=== PATIENT | female | born 1995 | race Caucasian/White ===

== ENCOUNTER 2017-10-29 15:59 | Inpatient (IN) | payer OTHER ==
[~2017-10-29] VITALS: Ht 160 cm; Wt 86.2 kg
[2017-10-29 17:20] LABS: ABSOLUTE BASOPHIL COUNT 0 /CUMM (0.0-0.2); ABSOLUTE EOSINOPHIL COUNT 0.1 /CUMM (0.0-0.7); ABSOLUTE GRANULOCYTE CT 3.7 /CUMM (1.4-6.5); ABSOLUTE LYMPH COUNT 0.7 /CUMM (1.2-3.4); ABSOLUTE MONOCYTE COUNT 0.5 /CUMM (0.10-0.60); BASOPHIL % 0.2 % (0.0-2.0); EOSINOPHIL % 2.5 % (0-5); GRANULOCYTE % 74.3 % (42.2-75.2); MEAN CORPUSCULAR HGB 29.5 PG (27.0-31.0); MEAN CORPUSCULAR HGB CONC 33.8 G/DL (33.0-37.0); MEAN CORPUSCULAR VOLUME 87.3 FL (81.0-99.0); MEAN PLATELET VOLUME 7.9 FL (7.4-10.4); PLATELET COUNT 263 /CUMM (130-400); RBC DISTRIBUTION WIDTH 12.6 % (11.5-14.5); RED BLOOD CELL CT 4.69 /CUMM (4.20-5.40)
--- NOTE | 2017-10-29 18:07 | ED GENERAL ADULT ---
History of Present Illness General Chief Complaint: General Adult Stated Complaint: CHEST AND BACK TIGHTNESS AND PAIN,SOB,HEART RACING Source: patient Exam Limitations: no limitations Vital Signs & Intake/Output Vital Signs & Intake/Output Vital Signs Date Time Temp Pulse Resp B/P B/P Pulse O2 O2 Flow FiO2 Mean Ox Delivery Rate 10/29 2210 98.6 86 16 121/69 98 Room Air 10/29 2012 Room Air 10/29 1611 97.1 120 18 117/81 97 Room Air ED Intake and Output 10/30 0000 10/29 1200 Intake Total Output Total Balance Patient 190 lb Weight Allergies Coded Allergies: NO KNOWN ALLERGIES (NKDA) (12/05/10) Triage Note: PT STATES THAT SINCE YESTERDAY AFTER SHE EATS SHE HAS BEEN GETTING SHARP PAIN THAT GOES FROM HER UPPER ABD AND RADIATES INTO HER FLANK UPPER BACK, DENIES V/D BUT COMPLAINS OF NAUSEA. Triage Nurses Notes Reviewed? yes Onset: Gradual Duration: day(s): (2) Timing: no prior history Injury Environment: home Severity: moderate Severity Numbers: 6 Modifying Factors: Worsens With: eating. : No Patient currently breastfeeds: No HPI: Patient is a 22-year-old female presenting to the emergency Department chief complaint of bilateral back pain that is burning in nature and worse with palpation and laying on her back. Patient also reporting that she has upper abdominal pain. Symptoms worse after she eats. Positive nausea but no vomiting. Denies fevers or chills. Denies taking anything for symptoms over- the-counter to help. denies Similar symptoms in the past. Denies any trauma. Patient does report that she has had palpitations and feeling her heart is racing. Denies any chest pain. He also reports that she's been ongoing over the past 2 days, atypical for her as she has the Mirena. Denies any urinary frequency or urgency or dysuria. No hematuria. (Purvi Church) Past History Travel History Traveled to [place] past 21 day No Medical History Any Pertinent Medical History? see below for history Neurological: NONE EENT: NONE Cardiovascular: NONE Respiratory: NONE Gastrointestinal: NONE Hepatic: NONE Renal: NONE Musculoskeletal: NONE Psychiatric: NONE Endocrine: NONE Blood Disorders: NONE Cancer(s): NONE MANAGER SERVICES/Reproductive: NONE Surgical History Surgical History: non-contributory Psychosocial History What is your primary language Vietnamese Tobacco Use: Never used ETOH Use: denies use Illicit Drug Use: denies illicit drug use Family History Hx Contributory? No (Purvi Church) Review of Systems Review of Systems Constitutional: Reports: no symptoms. Comments Review of systems: See HPI, All other systems negative. Constitutional, no chills fever or weight loss HEENT: No visual changes no sore throat no congestion Cardiovascular: No chest pain ,orthopnea or ankle swelling Skin, no jaundice no rashes Respiratory: No dyspnea cough sputum or hemoptysis GI: No nausea no vomiting : No dysuria No hematuria Muscle skeletal: no neck pain, Neurologic: No numbness no confusion Psych: No stress anxiety or depression,. Heme/endocrine: No bruising no bleeding no polyuria or polydipsia Immunology: No splenectomy or history of AIDS (Purvi Church) Physical Exam Physical Exam General Appearance: well developed/nourished, no apparent distress, alert, awake , comfortable Comments: Well-developed well-nourished person in no acute distress HEENT:. Pupils equally round and reactive to light and accommodation. Nose is atraumatic. Neck: Normal inspection, full range of motion. Back: tender Palpation along the lumbar paraspinal muscles bilaterally. Full range of motion without difficulty or pain. Negative straight leg raise bilaterally. Cardiovascular: Regular rate and rhythms no murmurs rubs or gallops, normal JVP Respiratory: Chest nontender. No respiratory distress.breath sounds clear to auscultation bilaterally Abdomen: Soft, tenderness to palpation in epigastric region without rebound or guarding, nondistended, no appreciable organomegaly. Normal bowel sounds. No ascites Extremity: No edema, no calf tenderness to palpation, normal and equal pulses. Patellar reflexes are 1+ bilaterally. Neuro: Alert oriented x3, motor sensory normal Skin: No appreciable rash on exposed skin, skin is warm and dry. Psych: Mood and affect is normal, memory and judgment is normal. Core Measures ACS in differential dx? Yes CVA/TIA Diagnosis: No (Purvi Church) Core Measures Sepsis Present: No Sepsis Focused Exam Completed? No (Nicholas Cook) Progress Differential Diagnoses I considered the following diagnoses in my evaluation of the patient: Cholecystitis, biliary colic, gallstones, dehydration, electrolyte ML a UTI, pyelonephritis and hydronephrosis, PE, ACS Plan of Care: Orders Procedure Date/time Status Regular Diet 10/30 B Active Misc Message 10/29 2357 Active ED Holding Orders 10/29 2358 Active Vital Signs 10/29 235 Active Code Status 10/29 235 Active Patient Data 10/29 235 Active Admit to inpatient 10/29 235 Active Add-on Test (ER Only) 10/29 2109 Active Add-on Test (ER Only) 10/29 1840 Active Add-on Test (ER Only) 10/29 180 Active Add-on Test (ER Only) 10/29 180 Active CULTURE,URINE 10/29 170 Active TSH REFLEX 10/29 1701 Complete TROPONIN LEVEL 10/29 1701 Complete PARTIAL THROMBOPLASTIN TIME 10/29 1701 Complete PROTHROMBIN TIME 10/29 1701 Complete LIPASE 10/29 1701 Complete D-DIMER 10/29 1701 Complete AMYLASE 10/29 1701 Complete URINE 10/29 1614 Complete URINALYSIS 10/29 1614 Complete LACTIC ACID 10/29 1614 Complete COMPREHENSIVE METABOLIC PANEL 10/29 1614 Complete CBC WITHOUT DIFFERENTIAL 10/29 1614 Complete EKG 10/29 1600 Active Current Medications Sig/Kriss Start time Last Medication Dose Stop Time Status Admin Pantoprazole Sodium 40 MG ONCE ONE 10/29 2230 AC 10/29 (Protonix) 10/30 0329 2302 Sodium Chloride 100 ML (Normal Saline 0.9%) Laboratory Tests 10/29/17 1914: Lactic Acid Cancelled 10/29/17 170: Urinalysis LIGHT H, Urine Color YEL, Urine Clarity CLDY H, Urine pH 6.5, Ur Specific [place] 1.020, Urine Protein TRACE H, Urine Ketones TRACE H, Urine Nitrite NEG, Urine Bilirubin NEG, Urine Urobilinogen 4.0 H, Ur Leukocyte Esterase SMALL H, Ur Microscopic SEDIMENT EXAMINED, Urine RBC RARE, Urine WBC 5 -10 H, Ur Epithelial Cells PACKD H, Urine Bacteria MANY H, Urine Mucus MANY H, Urine Hemoglobin NEG, Urine Glucose NEG, Urine Test NEGATIVE 10/29/17 170: Anion Gap 12, Estimated GFR > 60, BUN/Creatinine Ratio 20.0, Glucose 100 H, Lactic Acid 0.7, Calcium 9.5, Total Bilirubin 0.9, AST 18, ALT 25, Alkaline Phosphatase 76, Troponin I < 0.01, Total Protein 7.7, Albumin 4.5, Globulin 3.2, Albumin/Globulin Ratio 1.4, Amylase 32, Lipase 65, TSH &T3 &Free T4 Intrp 1.790, PT 12.3, INR 1.13, APTT 33, D-Dimer High Sensitivty < 200, CBC w Diff NO MAN DIFF REQ, RBC 4.69, MCV 87.3, MCH 29.5, MCHC 33.8, RDW 12.6, MPV 7.9, Gran % 74.3, Lymphocytes % 13.8 L, Monocytes % 9.2, Eosinophils % 2.5, Basophils % 0.2 , Absolute Granulocytes 3.7, Absolute Lymphocytes 0.7 L, Absolute Monocytes 0.5 , Absolute Eosinophils 0.1, Absolute Basophils 0 Microbiology 10/29 170 URINE ROUT: Urine Culture - RECD Diagnostic Imaging: Viewed by Me: CT Scan. Discussed w/RAD: CT Scan. Initial ED EKG: sinus tachy 109 bpm (Lisseth MURRAY,Purvi) Radiology Impression: PATIENT: ANNAMARIE TELLES PRESENT AGE: 22 PATIENT ACCOUNT NO: [id number] : 96 LOCATION: [facility] ORDERING PHYSICIAN: Purvi MURRAY SERVICE DATE: 10/29/17 EXAM TYPE: CAT - CT ABD & PELVIS W IV CONTRAST EXAMINATION: CT ABDOMEN AND PELVIS WITH CONTRAST CLINICAL INFORMATION: Epigastric pain COMPARISON: None TECHNIQUE: Multidetector volumetric imaging was performed of the abdomen and pelvis following IV administration of 94 mL of Optiray 320 intravenous contrast. Sagittal and coronal reformatted images were obtained on the technologist's workstation. DLP: 729 mGy-cm FINDINGS: Lung bases demonstrate a small pleural nodule on the left. 4 mm. Otherwise grossly clear. Upper abdomen There is a fluid density collection associated stranding at the level of the GE junction and extending along the gastric border medially the level of the distal body of the pancreas. This structure measures 4.9 x 2.8 x 5.4 cm. This may be having some mass effect on the lesser curvature of the stomach. No bulky adenopathy is seen in the region. As stated this is fluid density. The liver and spleen are within normal limits. Although this structure abuts the pancreas if feel it is separate from the pancreas. Adrenal glands within normal limits. The kidneys in the nephrographic phase within normal limits. Aorta is normal in caliber. There is no bulky adenopathy. No free fluid here. In the pelvis IUD within uterine canal. Small amount of free fluid in the pelvis on the left. The bowel pattern in the deep pelvis is felt to be within normal limits. Mildly prominent mesenteric nodes. The appendix is felt to be within normal limits. IMPRESSION: This exam is abnormal. There is a circumscribed fluid collection associated with the medial aspect of the stomach in the epigastrium as described. Findings may be the sequela of ulceration versus a duplication cyst or possibly pancreatic pseudocyst or cystic lesion of other etiology. Recommendation is pre and postcontrast MRI to better characterize. GI consultation and upper GI may also be helpful DICTATED BY: Pj Adam MD DATE/TIME DICTATED:10/29/172027 MAILING MACHINE OPERATOR:STEVIE DATE/TIME TRANSCRIBED:10/29/172027 CONFIDENTIAL, DO NOT COPY WITHOUT APPROPRIATE AUTHORIZATION. <Electronically signed in Other Vendor System> SIGNED BY: Pj Adam MD 10/29/172039 (Nicholas Cook) Departure Departure Condition: Stable Referrals: Moises HURLEY,Taiwo Acharya (PCP/Family) Departure Forms: Customer Survey General Discharge Information (Purvi Church) Departure Disposition: STILL A PATIENT Clinical Impression Primary Impression: Intra-abdominal fluid collection Secondary Impressions: Abdominal pain Admission Note Spoke With: Ashley Zelaya MD Documentation of Exam: Documentation of any treatments & extenuating circumstances including Concerns Regarding Discharge (functional status, medication knowledge or non-compliance, living conditions, etc.) that warrant an admission rather than observation: Patient will require surgical consultation. GI consultation. Upper endoscopy. MRI of the upper abdomen. Ultrasound. Potential needle aspiration. Medical not safe for discharge. Surgical PA came and saw the patient. Spoke with Dr. ty from GI who thinks the patient needs to be admitted. Spoke with Dr. Mcgraw. (Nicholas Cook) Critical Care Note Critical Care Note Critical Care Time: non-applicable (Nicholas Cook)
[2017-10-29 18:37] LABS: PT 12.3 SEC (9.4-12.5); PTT 33 SEC (25-37)
--- NOTE | 2017-10-29 20:40 | CT SCAN REPORT ---
EXAMINATION: CT ABDOMEN AND PELVIS WITH CONTRAST CLINICAL INFORMATION: Epigastric pain COMPARISON: None TECHNIQUE: Multidetector volumetric imaging was performed of the abdomen and pelvis following IV administration of 94 mL of Optiray 320 intravenous contrast. Sagittal and coronal reformatted images were obtained on the technologist's workstation. DLP: 729 mGy-cm FINDINGS: Lung bases demonstrate a small pleural nodule on the left. 4 mm. Otherwise grossly clear. Upper abdomen There is a fluid density collection associated stranding at the level of the GE junction and extending along the gastric border medially the level of the distal body of the pancreas. This structure measures 4.9 x 2.8 x 5.4 cm. This may be having some mass effect on the lesser curvature of the stomach. No bulky adenopathy is seen in the region. As stated this is fluid density. The liver and spleen are within normal limits. Although this structure abuts the pancreas if feel it is separate from the pancreas. Adrenal glands within normal limits. The kidneys in the nephrographic phase within normal limits. Aorta is normal in caliber. There is no bulky adenopathy. No free fluid here. In the pelvis IUD within uterine canal. Small amount of free fluid in the pelvis on the left. The bowel pattern in the deep pelvis is felt to be within normal limits. Mildly prominent mesenteric nodes. The appendix is felt to be within normal limits. IMPRESSION: This exam is abnormal. There is a circumscribed fluid collection associated with the medial aspect of the stomach in the epigastrium as described. Findings may be the sequela of ulceration versus a duplication cyst or possibly pancreatic pseudocyst or cystic lesion of other etiology. Recommendation is pre and postcontrast MRI to better characterize. GI consultation and upper GI may also be helpful
--- NOTE | 2017-10-29 23:04 | PN- General Surgery ---
Subjective Subjective: 22-year-old female presents to the emergency department with complaints 2 days of intermittent epigastric abdominal pain that radiates to the mid back, escalating in severity, postprandial after an egg and cheese sandwich as well as a cheese quesadilla, aproximately a half hour after eating, associated with mild to moderate nausea. She presented to the ER this evening due to the severe pain. She denies any fever or flulike illness or lower back pain flank pain or lower abdominal pain. She has no gallbladder pain history or history of GERD/ reflux disease. No NSAID use. No family history of same. The pain is better now after receiving pain medication. She denies vomiting or diarrhea. CT showed an abnormal fluid collection protocol to the stomach and surgery was consulted. She also complains of mild superior mid sternal burning sensation after eating as well that resolves quickly. No history of same. Review of Systems: Review of systems: See HPI, all other systems negative. Constitutional: No chills fever or weight loss HEENT: No visual changes no sore throat no congestion Cardiovascular: No chest pain ,palpitation , orthopnea or ankle swelling Skin: No jaundice no rashes Respiratory: No dyspnea cough sputum or hemoptysis GI: See HPI : No dysuria no hematuria Musclulo skeletal: No back pain no neck pain, Neurologic: No numbness no confusion Psych: No stress anxiety or depression,. Heme/endocrine: No bruising no bleeding no polyuria or polydipsia Immunology: No splenectomy or history of AIDS Objective Vital Signs and I&Os Vital Signs Date Time Temp Pulse Resp B/P B/P Pulse O2 O2 Flow FiO2 Mean Ox Delivery Rate 10/29 2210 98.6 86 16 121/69 98 Room Air 10/29 2012 Room Air 10/29 1611 97.1 120 18 117/81 97 Room Air Physical Exam: Well-developed well-nourished no apparent distress. HEENT: Atraumatic, extraocular motion intact Neck: Supple, no lymphadenopathy Heart: Regular rate and rhythm no murmur Respiratory: No respiratory distress clear to auscultation bilateral Abdomen: Obese, tenderness in the epigastrium, negative Putnam sign, no lower abdominal tenderness. Back: Nontender, no rashes present Extremities: No edema, no calf pain Neuro: Alert and oriented x3 Psych: Mood affect normal, normal memory normal judgment. Skin: Warm and dry, no rash on exposed skin Current Medications: Current Medications Sig/Kriss Start time Last Medication Dose Route Stop Time Status Admin Ketorolac 0 .STK-MED ONE 10/30 2007 DC Tromethamine .ROUTE Ketorolac 30 MG ONCE ONE 10/29 1899 DC 10/29 Tromethamine IV 10/29 Pantoprazole Sodium 0 .STK-MED ONE 10/29 2252 DC IV Pantoprazole Sodium 40 MG ONCE ONE 10/29 2229 UNVr Sodium Chloride 100 ML IV 10/30 0329 Results Last 48 Hours of Labs: Laboratory Tests 10/29 10/29 191 1704 Chemistry Lactic Acid Cancelled Urines Urinalysis LIGHT H Urine Color (YEL,AMB,STR) YEL Urine Clarity (CLEAR) CLDY H Urine pH (5.0 - 8.0) 6.5 Ur Specific [place] (1.001 - 1.035) 1.020 Urine Protein (NEG,<30 MG/DL) TRACE H Urine Ketones (NEG) TRACE H Urine Nitrite (NEG) NEG Urine Bilirubin (NEG) NEG Urine Urobilinogen (0.1 - 1.0 EU/dl) 4.0 H Ur Leukocyte Esterase (NEG) SMALL H Ur Microscopic SEDIMENT EXAMINED Urine RBC (0 - 5 /HPF) RARE Urine WBC (0 - 2 /HPF) 5-10 H Ur Epithelial Cells (NONE,FEW) PACKD H Urine Bacteria (NEG/NONE) MANY H Urine Mucus (FEW,NONE) MANY H Urine Hemoglobin (NEG) NEG Urine Glucose (N MG/DL) NEG Urine Test NEGATIVE 10/29 1700 Chemistry Sodium (137 - 145 mmol/L) 141 Potassium (3.5 - 5.1 mmol/L) 3.7 Chloride (98 - 107 mmol/L) 100 Carbon Dioxide (22 - 30 mmol/L) 29 Anion Gap (5 - 16) 12 BUN (7 - 17 mg/dL) 14 Creatinine (0.5 - 1.0 mg/dL) 0.7 Estimated GFR (>60 ml/min) > 60 BUN/Creatinine Ratio (7 - 25 %) 20.0 Glucose (65 - 99 mg/dL) 100 H Lactic Acid (0.7 - 2.1 mmol/L) 0.7 Calcium (8.4 - 10.2 mg/dL) 9.5 Total Bilirubin (0.2 - 1.3 mg/dL) 0.9 AST (14 - 36 U/L) 18 ALT (9 - 52 U/L) 25 Alkaline Phosphatase (<127 U/L) 76 Troponin I (< 0.11 ng/ml) < 0.01 Total Protein (6.3 - 8.2 g/dL) 7.7 Albumin (3.5 - 5.0 g/dL) 4.5 Globulin (1.9 - 4.2 gm/dL) 3.2 Albumin/Globulin Ratio (1.1 - 2.2 %) 1.4 Amylase (30 - 110 U/L) 32 Lipase (23 - 300 U/L) 65 TSH &T3 &Free T4 Intrp (0.270 - 4.20 uIU/mL) 1.790 Coagulation PT (9.4 - 12.5 SEC) 12.3 INR (0.90 - 1.19) 1.13 APTT (25 - 37 SEC) 33 D-Dimer High Sensitivty (0 - 243 ng/ml) < 200 Hematology CBC w Diff NO MAN DIFF REQ WBC (4.8 - 10.8 /CUMM) 5.0 RBC (4.20 - 5.40 /CUMM) 4.69 Hgb (12.0 - 16.0 G/DL) 13.9 Hct (37 - 47 %) 41.0 MCV (81.0 - 99.0 FL) 87.3 MCH (27.0 - 31.0 PG) 29.5 MCHC (33.0 - 37.0 G/DL) 33.8 RDW (11.5 - 14.5 %) 12.6 Plt Count (130 - 400 /CUMM) 263 MPV (7.4 - 10.4 FL) 7.9 Gran % (42.2 - 75.2 %) 74.3 Lymphocytes % (20.5 - 51.1 %) 13.8 L Monocytes % (1.7 - 9.3 %) 9.2 Eosinophils % (0 - 5 %) 2.5 Basophils % (0.0 - 2.0 %) 0.2 Absolute Granulocytes (1.4 - 6.5 /CUMM) 3.7 Absolute Lymphocytes (1.2 - 3.4 /CUMM) 0.7 L Absolute Monocytes (0.10 - 0.60 /CUMM) 0.5 Absolute Eosinophils (0.0 - 0.7 /CUMM) 0.1 Absolute Basophils (0.0 - 0.2 /CUMM) 0 Recent Imaging Studies: PATIENT: ANNAMARIE TELLES PRESENT AGE: 22 PATIENT ACCOUNT NO: [id number] : 96 LOCATION: [facility] ORDERING PHYSICIAN: Purvi MURRAY SERVICE DATE: 10/29/17 EXAM TYPE: CAT - CT ABD & PELVIS W IV CONTRAST EXAMINATION: CT ABDOMEN AND PELVIS WITH CONTRAST CLINICAL INFORMATION: Epigastric pain COMPARISON: None TECHNIQUE: Multidetector volumetric imaging was performed of the abdomen and pelvis following IV administration of 94 mL of Optiray 320 intravenous contrast. Sagittal and coronal reformatted images were obtained on the technologist's workstation. DLP: 729 mGy-cm FINDINGS: Lung bases demonstrate a small pleural nodule on the left. 4 mm. Otherwise grossly clear. Upper abdomen There is a fluid density collection associated stranding at the level of the GE junction and extending along the gastric border medially the level of the distal body of the pancreas. This structure measures 4.9 x 2.8 x 5.4 cm. This may be having some mass effect on the lesser curvature of the stomach. No bulky adenopathy is seen in the region. As stated this is fluid density. The liver and spleen are within normal limits. Although this structure abuts the pancreas if feel it is separate from the pancreas. Adrenal glands within normal limits. The kidneys in the nephrographic phase within normal limits. Aorta is normal in caliber. There is no bulky adenopathy. No free fluid here. In the pelvis IUD within uterine canal. Small amount of free fluid in the pelvis on the left. The bowel pattern in the deep pelvis is felt to be within normal limits. Mildly prominent mesenteric nodes. The appendix is felt to be within normal limits. IMPRESSION: This exam is abnormal. There is a circumscribed fluid collection associated with the medial aspect of the stomach in the epigastrium as described. Findings may be the sequela of ulceration versus a duplication cyst or possibly pancreatic pseudocyst or cystic lesion of other etiology. Recommendation is pre and postcontrast MRI to better characterize. GI consultation and upper GI may also be helpful DICTATED BY: Pj Adam MD DATE/TIME DICTATED:10/29/172027 COMPENSATION AND BENEFITS ADMINISTRATOR:STEVIE DATE/TIME TRANSCRIBED:10/29/172027 Assessment/Plan Assessment/Plan Intra-abdominal fluid collection to the medial aspect of the stomach. Patient is not ill, no signs of peritonitis. Possibilities include cyst/pseudocyst, pancreatic pseudocyst, abscess, contained ulcer perforation of the stomach, biliary colic with incidental finding. Recommend GI consult for further evaluation of this, possibly endoscopy with endoscopic ultrasound. No role for acute surgical intervention at this time as we will need to further characterize this prior to any surgical intervention. We will continue to follow along with you, full consult to be performed by John Mcgraw MD tomorrow. Discussed with patient and mother who understand and agree with plan Problem List: 1. Abdominal pain 2. Intra-abdominal fluid collection
--- NOTE | 2017-10-30 00:13 | History & Physical ---
DarciDiego 10/30/17 0012: General Information and HPI MD Statement: I have seen and personally examined ANNAMARIE TELLES and documented this H&P. The patient is a 22 year old F who presented with a patient stated chief complaint of back pain, burning sensation in the chest, nausea, dizziness and bloating sensation in the epigastrium for last 2 days []. Source of Information: patient, family Exam Limitations: no limitations History of Present Illness: 22 YO F non smoker with no significant PMH was brought to ED by her mother with chief complaint of back pain, nausea, epigastric bloating sensation, burning sensation in the chest and dizziness for last 2 days. Patient reported that she was in her usual state of health 2 days back when he suddenly started to have lower back pain especially on the right side. Patient reported that pain started suddenly after she woke up, sharp, 7/10, nonradiating, aggravated when she laid down on back and she didn't have any pain medication according to patient. Later on patient noticed that she had acid reflux and feeling nauseous. Patient also reported that she was having dizziness at that point and she was feeling fullness in the belly. She denied any central chest pain, shortness of breath, palpitation, trauma to chest, loss of consciousness, chills, fever, vomiting, hematemesis, diarrhea, constipation, abdominal pain and dysuria. Patient reported that she was diagnosed with ovarian cyst in the past and then her VACUUM FORMING MACHINE OPERATOR gave her oral contraceptive medication. She reported occasional use of alcohol. Patient also reported having bright red spotting that's unusual for. ED course: Vitals: Temperature 97.1, pulse 120, respiratory rate 18, blood pressure 117/81, oxygen saturation 97% on room air Labs: WBC count 5.0, hemoglobin 13.9, hematocrit 40.0, platelet count 263, sodium 141, potassium 3.7, BUN 14, creatinine 0.7, glucose 100, BUNs/creatinine ratio 20.0, anion gap 12, lactic acid 0.7, calcium 9.5, AST 18, ALT 25, alkaline phosphatase 76, troponin less than 0.01, protein 7.7, albumin 4.5, globulin 3.2, albumin/creatinine ratio 1.4, amylase 32, lipase 65 Allergies/Medications Allergies: Coded Allergies: NO KNOWN ALLERGIES (NKDA) (12/05/10) Past History Travel History Traveled to [place] past 21 day No Medical History Neurological: NONE EENT: NONE Cardiovascular: NONE Respiratory: NONE Gastrointestinal: NONE Hepatic: NONE Renal: NONE Musculoskeletal: NONE Psychiatric: NONE Endocrine: NONE Blood Disorders: NONE Cancer(s): NONE CABINET INSTALLER/Reproductive: NONE Surgical History Surgical History: non-contributory Past Family/Social History Psychosocial History ETOH Use: denies use Illicit Drug Use: denies illicit drug use Review of Systems Review of Systems Constitutional: Reports: weakness. EENTM: Reports: no symptoms. Cardiovascular: Reports: no symptoms. Respiratory: Reports: no symptoms. GI: Reports: abdominal pain, bloating, nausea. Genitourinary: Reports: no symptoms. Musculoskeletal: Reports: back pain. Skin: Reports: no symptoms. Neurological/Psychological: Reports: no symptoms. Hematologic/Endocrine: Reports: no symptoms. Exam & Diagnostic Data Last 24 Hrs of Vital Signs/I&O Vital Signs Date Time Temp Pulse Resp B/P B/P Pulse O2 O2 Flow FiO2 Mean Ox Delivery Rate 10/29 2210 98.6 86 16 121/69 98 Room Air 10/29 2012 Room Air 10/29 1611 97.1 120 18 117/81 97 Room Air Intake & Output 10/30 0800 10/30 0000 10/29 1600 Intake Total Output Total Balance Patient 190 lb Weight Physical Exam General Appearance Alert, Oriented X3, Cooperative, No Acute Distress Skin No Rashes Skin Temp/Moisture Exam: Warm/Dry Sepsis Skin Exam (color): Normal for Ethnicity HEENT Atraumatic, PERRLA, EOMI Neck Supple Cardiovascular Normal S1, Normal S2 Lungs Clear to Auscultation, Normal Air Movement Abdomen Normal Bowel Sounds, Mild tenderness in epigastrium Neurological Normal Speech, Strength at 5/5 X4 Ext, Normal Tone, Sensation Intact Extremities No Edema Assessment/Plan Assessment: 22 YO F non smoker with no significant PMH was brought to ED by her mother with chief complaint of back pain, nausea, epigastric bloating sensation, burning sensation in the chest and dizziness for last 2 days. We'll admit the patient on general medicine floors admit the patient on general medicine floor abdominal bloating and nausea with back pain. Abdominal bloating and nausea: -On CT scan, there is cystic swelling posterior to stomach starting from gastroesophageal junction to the lesser curvature and tail of pancreas that could be possible pseudocyst pancreas, abscess or collection of fluid due to perforation of duodenal ulcer. -MRI in a.m. to evaluate mass. -We'll follow up with general surgery -GI consult -IV Protonix -Gentle hydration -IV antiemetics (Zofran) -Nothing by mouth Back pain: -We will follow pain pathway -IV morphine when necessary DVT prophylaxis: Mechanical and subcutaneous Lovenox CODE STATUS: Full code As Ranked By This Provider Problem List: 1. Nausea 2. Abdominal bloating 3. Back pain Core Measures/Misc (04/28) Acute Coronary Syndrome ACS Diagnosis: No Congestive Heart Failure Congestive Heart Failure Diagnosis No Cerebrovascular Accident CVA/TIA Diagnosis: No VTE (View Protocol) VTE Risk Factors Obesity No Mechanical VTE Prophylaxis d/t N/A MechProphylax Ordered No VTE Pharm Prophylaxis d/t NA PharmProphylax ordered Sepsis (View protocol) Sepsis Present: No JayaMartha reyes 10/30/17 0133: Resident Review Statement Resident Statement: examined this patient, discussed with editing intern, agreed with editing intern Other Findings: Patient is 22-year-old occasion female with no significant past medical history came with chief complaint of mid back pain and epigastric pain for 2 days. Patient endorses that on Saturday afternoon she started experiencing mid back pain which was sharp, burning, continuous, non-positional and nonradiating 7-8 x 10 in intensity. She had that pain during the evening and go to sleep without taking any pain medications but woke up around 4 AM with severe epigastric pain associated with nausea. She denied any active vomiting but she was very dizzy, tired and fatigued on Saturday and decided to come to ER. Review of system was negative for any fever, chills, headache, vomiting, diarrhea, constipation, any urinary complaints, any focal neurological deficit, palpitations or shortness of breath. She denied any recent weight changes. She is nonsmoker and nonalcoholic. She was not hospitalized for any similar symptoms in the past. She denied any history of acid reflux in the past. She also had intermittent vaginal fresh bleeding which is unusual than her regular spoting due to Mirena. Her vital signs on admission were temperature 97.1, pulse 120, respiratory rate 18, blood pressure 117/81 and she was saturating 97% on room air. Labs are significant for WBC of 5.0, hemoglobin 13.9, hematocrit 41.0, rated count 263, sodium 141, potassium 3.7, BUN 14, creatinine 0.7, lactic acid 0.7, negative troponin, amylase 32, lipase 65, normal TSH. EKG showed normal sinus rhythm with no acute ST-T wave changes. CT abdomen and pelvis showed circumscribed fluid collection associated with the medial aspect of stomach in the epigastrium. Structure measures 4.9 into 2.18- 5.4 cm. patientwas evaluated by surgery but no urgent surgical intervention needed at this point. On examination Patient is alert and oriented 3 Head atraumatic Neck supple Chest clear to auscultate Back examination significant for slight tenderness on palpation over right lower back/costovertebral angle tenderness positive on right side, no rash or skin changes noted Abdomen soft, normal bowel sounds with slight tenderness in epigastric area, no rebound tenderness Extremities showed no edema cyanosis or clubbing No neurological deficit noted Assessment and plan 22-year-old nonsmoker, nonalcoholic female with no significant past medical history came in with chief complaint of epigastric pain, mid back pain and nausea with imaging incidental finding of cystic mass at GE junction concerning for questionable cyst for GI in origin. We will admit patient on general medical floor and we will address following problems Problem list 1. Mid back pain/epigastric pain could be due to GERD but other GI etiologies needs to be ruled out 2. cystic epigastric/abdominal mass needs further workup could be incidental finding Plan 1. We will keep patient on general medical floor 2. We will monitor her CBCs and electrolytes daily 3. We will keep her nothing by mouth and will start her on IV fluids 4. Adequate analgesia with Tylenol and morphine as needed 5. Antiemetics as needed for nausea/vomiting 6. We will order MRI of abdomen with and without gadolinium for further evaluation of mass 7. We will request GI evaluation in the morning as patient might need EGD 8. We'll keep her on proton pump inhibitor 9. Patient was already been evaluated by surgery in emergency room. Pharmacological DVT prophylaxis Patient is full code We will keep her nothing by mouth for now. Garcia HURLEY, [facility] 10/30/17 0552: Attending Review Statement Attending Statement Attending Statement: examined this patient, discuss w/resident/PA/BOTTOM TURNER, agreed w/resident/PA/BOTTOM TURNER, discussed with family, reviewed images, amended to note Attending Assessment/Plan: 22 yo healthy female is here for sudden onset epigastric abdominal and mid-back pain associated with nausea. She has had two episodes in the past 2 days, both precipitated after eating a fatty meal consisting of egg/chese sandwich and cheese quesadilla. She denies any such previous episodes, no h/o gallstones or pancreatitis. She did not vomit, denies fever/ chills or diarrhea. No weight loss or loss of appetite. No h/o GERD or peptic ulcer disease. No NSAID use. No urinary symptoms, no kidney stones. Today the pain was unrelenting so she came to the ER. Vitals stable. Abdomen tender in epigastric region. Negative ahumada's, no CVA tenderness. Labs are unremarkable. UA dirty, but not a good sample. Utox negative. CT abd/pelvis: fluid density collection associated stranding at level of GE junction, extending along gastric border measuring 4.9 by 2.8 by 5.4 cm with some mass effect on lesser curvature of stomach. ?pancreatic pseudocysts vs ulceration of stomach or gallbladder. EKG: sinus tachycardia. Assessment and plan: 1. Intractable epigastric abdominal pain 2. Intra-abdominal fluid collection at GE junction ?etiology - Admit to general medicine - Serial abdomen exams - NPO - IV fluids - IV pantoprazole and anti-emetics - Surgery consult no surgical intervention at this point - GI consult for possible EGD - MRI in AM - ?aspiration of the fluid collection - Pain management DVT ppx Lovenox. Full code.
--- NOTE | 2017-10-30 05:53 | Admission Certification ---
Admission Certification Certification Statement - As attending physician, I certify that at the time of - admission, based on clinical presentation, severity of - symptoms, need for further diagnostic testing and - therapeutic interventions, and risk of adverse outcomes - without in-hospital treatment, in my clinical assessment, - this patient requires an acute hospital stay for a minimum - of two nights or longer. I have also considered psychsocial - factors such as support system, advanced age, financial - issues, cognitive issues, and failed out-patient treatments, - past re-admission history, safety of patient, and lack of - compliance as applicable. Specific rationale supporting this admission is: Intractable abdominal pain, CT suggestive of abnormal fluid collection that needs further evaluation.
[2017-10-30 08:53] LABS: ABSOLUTE BASOPHIL COUNT 0 /CUMM (0.0-0.2); ABSOLUTE EOSINOPHIL COUNT 0.2 /CUMM (0.0-0.7); ABSOLUTE GRANULOCYTE CT 2.7 /CUMM (1.4-6.5); ABSOLUTE LYMPH COUNT 0.7 /CUMM (1.2-3.4); ABSOLUTE MONOCYTE COUNT 0.5 /CUMM (0.10-0.60); BASOPHIL % 0.2 % (0.0-2.0); EOSINOPHIL % 4.5 % (0-5); GRANULOCYTE % 66.3 % (42.2-75.2); HEMATOCRIT 37.4 % (37-47); MEAN CORPUSCULAR HGB 29.7 PG (27.0-31.0); MEAN CORPUSCULAR HGB CONC 34.3 G/DL (33.0-37.0); MEAN CORPUSCULAR VOLUME 86.4 FL (81.0-99.0); MEAN PLATELET VOLUME 8.3 FL (7.4-10.4); PLATELET COUNT 222 /CUMM (130-400); RBC DISTRIBUTION WIDTH 12.8 % (11.5-14.5); RED BLOOD CELL CT 4.33 /CUMM (4.20-5.40); WHITE BLOOD CELL COUNT 4.1 /CUMM (4.8-10.8)
--- NOTE | 2017-10-30 08:57 | Cons- Gastroenterology ---
See Addendum General Information and HPI Consulting Request Date of Consult: 10/30/17 Requested By: Mikki Preciado MD Reason for Consult: 1. Abdominal pain 2. Abnormal CT scan of the abdomen Source of Information: patient, Electronic medical record Exam Limitations: no limitations History of Present Illness: Patient is a 22-year-old female who presented to [facility] ED with acute onset of epigastric pain after eating dinner. MsChrista after she had this intense pain which she says was located in the back on Saturday evening. When she woke up on Saturday she had severe acid reflux all day which was not normal for her. She again ate a meal and again developed intense back pain as well as nausea and vomiting which she had never had before. She is moving her bowels normally. She had no hematemesis. She had no diarrhea and denies bright red blood per rectum. She had no fever or shaking chills. Patient had a CT scan of the abdomen in the ED which showed the following. Upper abdomen: There is a fluid density collection associated stranding at the level of the GE junction and extending along the gastric border medially the level of the distal body of the pancreas. This structure measures 4.9 x 2.8 x 5.4 cm. This may be having some mass effect on the lesser curvature of the stomach. No bulky adenopathy is seen in the region. As stated this is fluid density. The liver and spleen are within normal limits. Although this structure abuts the pancreas if feel it is separate from the pancreas. Adrenal glands within normal limits. The kidneys in the nephrographic phase within normal limits. Aorta is normal in caliber. There is no bulky adenopathy. No free fluid here. In the pelvis IUD within uterine canal. Small amount of free fluid in the pelvis on the left. The bowel pattern in the deep pelvis is felt to be within normal limits. Mildly prominent mesenteric nodes. The appendix is felt to be within normal limits. IMPRESSION: This exam is abnormal. There is a circumscribed fluid collection associated with the medial aspect of the stomach in the epigastrium as described. Findings may be the sequela of ulceration versus a duplication cyst or possibly pancreatic pseudocyst or cystic lesion of other etiology. Recommendation is pre and postcontrast MRI to better characterize. GI consultation and upper GI may also be helpful Labs on admission were unremarkable with a normal CMP, normal CBC, and coags. After CT which was inconclusive an MRI was ordered to help further define the etiology of the fluid collection noted on CT scan. The results are as follows. FINDINGS: Lung bases: Unremarkable. Liver: Normal size, contour and parenchymal signal intensity. Gallbladder and biliary tree: Gallbladder is physiologically distended and without cholelithiasis or wall edema. Common bile duct is normal and measures up to 3-4 mm diameter. No evidence of common duct stricture or choledocholithiasis. No intrahepatic bile duct dilatation. Pancreas: Normal. Spleen: Prominent spleen measures 14 cm craniocaudal dimension. No focal splenic lesion. Adrenal glands: Normal. Kidneys: Normal. No renal mass, hydronephrosis or perinephric edema. Lymphovascular structures: Abdominal aorta is normal in caliber and the celiac trunk, SMA and renal arteries are widely patent. Inferior vena cava and renal veins are normal. The splenic, mesenteric, portal and hepatic veins are patent. Within the upper abdomen interposed between the pancreatic body and stomach, there is a lobulated 5.6 x 4.3 x 3.1 cm cyst that contains several thin internal septations. There are no solid, contrast enhancing soft tissue elements within this lesion. No pathologic sized periportal, mesenteric or retroperitoneal lymph nodes. Gastrointestinal tract: Stomach is normal. The visualized loops of bowel are normal in caliber. No evidence of inflammation or obstruction along the gastrointestinal tract. No ascites. Bones: Unremarkable. IMPRESSION: 1. No evidence of cholelithiasis, cholecystitis or biliary tract obstruction. 2. There is a benign appearing, lobulated 5.6 x 4.3 x 3.1 cm cyst containing several thin internal septations within the upper abdomen interposed between the pancreatic body and stomach. 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 3. Splenomegaly. Allergies/Medications Allergies: Coded Allergies: NO KNOWN ALLERGIES (NKDA) (12/05/10) Current Medications: Current Medications Sig/Kriss Start time Last Medication Dose Route Stop Time Status Admin Acetaminophen 1,000 MG TID PRN 10/30 0130 AC IV Enoxaparin Sodium 0 .STK-MED ONE 10/30 1124 DC SC Enoxaparin Sodium 40 MG DAILY 10/30 0200 AC SC Enoxaparin Sodium 0 .STK-MED ONE 10/30 0156 DC SC Ketorolac 0 .STK-MED ONE 03/20 2008 DC Tromethamine .ROUTE Ketorolac 30 MG ONCE ONE 10/29 1900 DC 10/29 Tromethamine IV 10/29 1901 1945 Morphine Sulfate 0 .STK-MED ONE 10/30 1023 DC .ROUTE Morphine Sulfate 2 MG Q6P PRN 10/30 0130 AC 10/30 IV 1025 Ondansetron HCl 4 MG ONCE ONE 10/30 1030 DC 10/30 IV 10/30 1031 1030 Ondansetron HCl 0 .STK-MED ONE 10/30 1023 DC .ROUTE Pantoprazole Sodium 0 .STK-MED ONE 10/30 1124 DC IV Pantoprazole Sodium 40 MG DAILY 10/30 1000 AC 10/30 IV 1132 Pantoprazole Sodium 0 .STK-MED ONE 10/29 2253 DC IV Pantoprazole Sodium 40 MG ONCE ONE 10/29 2230 DC 10/29 Sodium Chloride 100 ML IV 10/30 0329 2302 Ramelteon 8 MG ONCE ONE 10/30 0130 DC 10/30 PO 10/30 0131 0209 Sodium Chloride 1,000 ML Q10H 10/30 0130 AC 10/30 IV 1403 Past History Travel History Traveled to [place] past 21 day No Medical History Neurological: NONE EENT: NONE Cardiovascular: NONE Respiratory: NONE Gastrointestinal: NONE Hepatic: NONE Renal: NONE Musculoskeletal: NONE Psychiatric: NONE Endocrine: NONE Blood Disorders: NONE Cancer(s): NONE NEUROCRITICAL CARE PHYSICIAN/Reproductive: NONE Surgical History Surgical History: non-contributory Psychosocial History ETOH Use: denies use Illicit Drug Use: denies illicit drug use Exam & Diagnostic Data Vital Signs and I&O Vital Signs Date Time Temp Pulse Resp B/P B/P Pulse O2 O2 Flow FiO2 Mean Ox Delivery Rate 10/30 0640 97.7 94 18 110/54 97 Room Air 10/30 0114 98.2 78 18 106/64 99 Room Air 10/29 221 98.6 86 16 121/69 98 Room Air 10/29 2012 Room Air 10/29 1611 97.1 120 18 117/81 97 Room Air Intake & Output 10/30 1600 10/30 0400 10/29 1600 10/29 0400 10/28 1600 10/28 0400 Intake Total Output Total Balance Patient 190 lb Weight Physical Exam General Appearance: awake, comfortable Head: atraumatic, normal appearance Eyes: Bilateral: normal appearance. Ears, Nose, Throat: hearing grossly normal Neck: supple, full range of motion Respiratory: normal breath sounds, lungs clear Cardiovascular: regular rate/rhythm, normal S1 and S2 without rub murmur or gallop Gastrointestinal: normal bowel sounds, soft, non-tender, no organomegaly Extremities: normal inspection, no edema Neurologic/Psych: oriented x 3, normal mood/affect Cranial Nerves: cranial nerves II through XII intact grossly Skin: intact, normal color, warm/dry Results Pertinent Lab Results: Laboratory Tests 10/30 10/29 0633 1914 Chemistry Sodium (137 - 145 mmol/L) 142 Potassium (3.5 - 5.1 mmol/L) 3.6 Chloride (98 - 107 mmol/L) 105 Carbon Dioxide (22 - 30 mmol/L) 23 Anion Gap (5 - 16) 13 BUN (7 - 17 mg/dL) 14 Creatinine (0.5 - 1.0 mg/dL) 0.6 Estimated GFR (>60 ml/min) > 60 BUN/Creatinine Ratio (7 - 25 %) 23.3 Lactic Acid Cancelled Hematology CBC w Diff NO MAN DIFF REQ WBC (4.8 - 10.8 /CUMM) 4.1 L RBC (4.20 - 5.40 /CUMM) 4.33 Hgb (12.0 - 16.0 G/DL) 12.8 Hct (37 - 47 %) 37.4 MCV (81.0 - 99.0 FL) 86.4 MCH (27.0 - 31.0 PG) 29.7 MCHC (33.0 - 37.0 G/DL) 34.3 RDW (11.5 - 14.5 %) 12.8 Plt Count (130 - 400 /CUMM) 222 MPV (7.4 - 10.4 FL) 8.3 Gran % (42.2 - 75.2 %) 66.3 Lymphocytes % (20.5 - 51.1 %) 17.9 L Monocytes % (1.7 - 9.3 %) 11.1 H Eosinophils % (0 - 5 %) 4.5 Basophils % (0.0 - 2.0 %) 0.2 Absolute Granulocytes (1.4 - 6.5 /CUMM) 2.7 Absolute Lymphocytes (1.2 - 3.4 /CUMM) 0.7 L Absolute Monocytes (0.10 - 0.60 /CUMM) 0.5 Absolute Eosinophils (0.0 - 0.7 /CUMM) 0.2 Absolute Basophils (0.0 - 0.2 /CUMM) 0 10/29 1704 Toxicology Urine Opiates Screen (>2000 NG/ML) < 100 Methadone Screen (>300 NG/ML) < 40 Barbiturate Screen (>200 NG/ML) < 60 Ur Phencyclidine Scrn (>25 NG/ML) < 6.00 Amphetamines Screen (>1000 NG/ML) < 100 U Benzodiazepines Scrn (>200 NG/ML) < 85 Urine Cocaine Screen (>300 NG/ML) < 50 Urine Cannabis Screen (>50 NG/ML) < 5.00 Urines Urinalysis LIGHT H Urine Color (YEL,AMB,STR) YEL Urine Clarity (CLEAR) CLDY H Urine pH (5.0 - 8.0) 6.5 Ur Specific [place] (1.001 - 1.035) 1.020 Urine Protein (NEG,<30 MG/DL) TRACE H Urine Ketones (NEG) TRACE H Urine Nitrite (NEG) NEG Urine Bilirubin (NEG) NEG Urine Urobilinogen (0.1 - 1.0 EU/dl) 4.0 H Ur Leukocyte Esterase (NEG) SMALL H Ur Microscopic SEDIMENT EXAMINED Urine RBC (0 - 5 /HPF) RARE Urine WBC (0 - 2 /HPF) 5-10 H Ur Epithelial Cells (NONE,FEW) PACKD H Urine Bacteria (NEG/NONE) MANY H Urine Mucus (FEW,NONE) MANY H Urine Hemoglobin (NEG) NEG Urine Glucose (N MG/DL) NEG Urine Test NEGATIVE 10/29 1700 Chemistry Sodium (137 - 145 mmol/L) 141 Potassium (3.5 - 5.1 mmol/L) 3.7 Chloride (98 - 107 mmol/L) 100 Carbon Dioxide (22 - 30 mmol/L) 29 Anion Gap (5 - 16) 12 BUN (7 - 17 mg/dL) 14 Creatinine (0.5 - 1.0 mg/dL) 0.7 Estimated GFR (>60 ml/min) > 60 BUN/Creatinine Ratio (7 - 25 %) 20.0 Glucose (65 - 99 mg/dL) 100 H Lactic Acid (0.7 - 2.1 mmol/L) 0.7 Calcium (8.4 - 10.2 mg/dL) 9.5 Total Bilirubin (0.2 - 1.3 mg/dL) 0.9 AST (14 - 36 U/L) 18 ALT (9 - 52 U/L) 25 Alkaline Phosphatase (<127 U/L) 76 Troponin I (< 0.11 ng/ml) < 0.01 Total Protein (6.3 - 8.2 g/dL) 7.7 Albumin (3.5 - 5.0 g/dL) 4.5 Globulin (1.9 - 4.2 gm/dL) 3.2 Albumin/Globulin Ratio (1.1 - 2.2 %) 1.4 Amylase (30 - 110 U/L) 32 Lipase (23 - 300 U/L) 65 TSH &T3 &Free T4 Intrp (0.270 - 4.20 uIU/mL) 1.790 Coagulation PT (9.4 - 12.5 SEC) 12.3 INR (0.90 - 1.19) 1.13 APTT (25 - 37 SEC) 33 D-Dimer High Sensitivty (0 - 243 ng/ml) < 200 Hematology CBC w Diff NO MAN DIFF REQ WBC (4.8 - 10.8 /CUMM) 5.0 RBC (4.20 - 5.40 /CUMM) 4.69 Hgb (12.0 - 16.0 G/DL) 13.9 Hct (37 - 47 %) 41.0 MCV (81.0 - 99.0 FL) 87.3 MCH (27.0 - 31.0 PG) 29.5 MCHC (33.0 - 37.0 G/DL) 33.8 RDW (11.5 - 14.5 %) 12.6 Plt Count (130 - 400 /CUMM) 263 MPV (7.4 - 10.4 FL) 7.9 Gran % (42.2 - 75.2 %) 74.3 Lymphocytes % (20.5 - 51.1 %) 13.8 L Monocytes % (1.7 - 9.3 %) 9.2 Eosinophils % (0 - 5 %) 2.5 Basophils % (0.0 - 2.0 %) 0.2 Absolute Granulocytes (1.4 - 6.5 /CUMM) 3.7 Absolute Lymphocytes (1.2 - 3.4 /CUMM) 0.7 L Absolute Monocytes (0.10 - 0.60 /CUMM) 0.5 Absolute Eosinophils (0.0 - 0.7 /CUMM) 0.1 Absolute Basophils (0.0 - 0.2 /CUMM) 0 Assessment/Plan Assessment/Recommendations: ASSESSMENT: 1. 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 It is a lobulated 5.6 x 4.3 x 3.1 cm cyst that contains several thin internal septations. located between the stomach and the pancreas. RECOMMENDATIONS: I have explained to the patient into her mother that I believe that there was some cyst rupture or leakage which cause irritation of the peritoneum. I do not believe that she needs an EGD at this time. I am however concerned given its size that she may have recurrent symptoms from this. I believe that it is best addressed by a dedicated pancreatic O biliary surgeon given its location. As such I told the family that I believe she should be seen at [facility]. I do not know the pancreatic surgeons there and I' ve told him that I will check on that and let them know that they should see. Should she have recurrent symptoms she will go directly [facility]. I believe she is stable for discharge however I've asked that she be given a full tray and should she have recurrent symptoms after eating she will remain in hospital and we will consider a direct transfer to [place]. However she is able to tolerate a diet I believe that discharged to home should be safe. All questions have been answered. Ms. Mosqueda has asked me to call her mother Qian at with the name of a pancreatic surgeon. Consult Acknowledgment - Thank you for your consult request.
--- NOTE | 2017-10-30 12:35 | MRI REPORT ---
EXAMINATION: MR ABDOMEN WITHOUT AND WITH CONTRAST CLINICAL INFORMATION: 22-year-old female with epigastric pain. Abdominal mass. COMPARISON: CT images of the abdomen from 10/29/2017. TECHNIQUE: MR imaging of the abdomen was performed using standard sequences on a high-field 1.5 Christie magnet without and with intravenous administration of 9 mL of Gadavist contrast material. FINDINGS: Lung bases: Unremarkable. Liver: Normal size, contour and parenchymal signal intensity. Gallbladder and biliary tree: Gallbladder is physiologically distended and without cholelithiasis or wall edema. Common bile duct is normal and measures up to 3-4 mm diameter. No evidence of common duct stricture or choledocholithiasis. No intrahepatic bile duct dilatation. Pancreas: Normal. Spleen: Prominent spleen measures 14 cm craniocaudal dimension. No focal splenic lesion. Adrenal glands: Normal. Kidneys: Normal. No renal mass, hydronephrosis or perinephric edema. Lymphovascular structures: Abdominal aorta is normal in caliber and the celiac trunk, SMA and renal arteries are widely patent. Inferior vena cava and renal veins are normal. The splenic, mesenteric, portal and hepatic veins are patent. Within the upper abdomen interposed between the pancreatic body and stomach, there is a lobulated 5.6 x 4.3 x 3.1 cm cyst that contains several thin internal septations. There are no solid, contrast enhancing soft tissue elements within this lesion. No pathologic sized periportal, mesenteric or retroperitoneal lymph nodes. Gastrointestinal tract: Stomach is normal. The visualized loops of bowel are normal in caliber. No evidence of inflammation or obstruction along the gastrointestinal tract. No ascites. Bones: Unremarkable. IMPRESSION: 1. No evidence of cholelithiasis, cholecystitis or biliary tract obstruction. 2. There is a benign appearing, lobulated 5.6 x 4.3 x 3.1 cm cyst containing several thin internal septations within the upper abdomen interposed between the pancreatic body and stomach. 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 3. Splenomegaly.
[2017-10-30 14:13] VITALS: BP 100/70
--- NOTE | 2017-10-30 14:14 | PN- Att Addend ---
Attending Addendum Attending Brief Note 22-year-old young woman brought in as observation late last night/early this a.m. for epigastric pain and back pain. 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 Etiology of her symptomatology is unclear and could this be attributed to the cystic lymphangioma. We have her nothing by mouth and GI is scheduled to see her, the resident spoke to the power distributor who will come up shortly to see the patient. We'll keep her nothing by mouth just in case she needs an EGD until seen by GI and will follow-up closely.
--- NOTE | 2017-10-30 15:14 | Patient Discharge Instructions ---
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 Darrion Ag-Pancreatic surgeon at [facility] for an appointment and possible resection. To get imaging records at [facility] call ( [phone] for Medical records Follow up with your PCP within 1-2 weeks after discharge If symptoms persist go to [facility] for further evaluation and management Diet Continue normal diet: Yes Activity Full Activity/No Limits: Yes Acute Coronary Syndrome Inclusion Criteria At DC or during hospital stay patient has or had the following: ACS DIAGNOSIS No Discharge Core Measures Meds if any: Prescribed or Continued at Discharge Meds if any: NOT Prescribed or Continued at Discharge Congestive Heart Failure Inclusion Criteria At DC or during hospital stay patient has or had the following: CHF DIAGNOSIS No Discharge Core Measures Meds if any: Prescribed or Continued at Discharge Meds if any: NOT Prescribed or Continued at Discharge Cerebrovascular accident Inclusion Criteria At DC or during hospital stay patient has or had the following: CVA/TIA Diagnosis No Discharge Core Measures Meds if any: Prescribed or Continued at Discharge Meds if any: NOT Prescribed or Continued at Discharge Venous thromboembolism Inclusion Criteria VTE Diagnosis No VTE Type NONE VTE Confirmed by (Test) NONE Discharge Core Measures - Per Current guidelines, there needs to be overlap - treatment for the first 5 days of Warfarin therapy. - If discharged on Warfarin prior to 5 days of - overlap therapy, the patient will need to be - assessed for post discharge needs including - *Post discharge parental anticoagulation - *Warfarin and/or parental anticoagulation education - *Follow up date to check INR post discharge At least 5 days overlap therapy as Inpatient No Meds if any: Prescribed or Continued at Discharge Note: Overlap Therapy is Warfarin and Anticoagulant Meds if any: NOT Prescribed or Continued at Discharge
== END 2017-10-30 18:06 | DRG 816 ==
LOC: ERH 15:59 → ERHI 23:55 → 2NA 23:55 → ERHI 10-30 07:36 → ENRESERV 10-30 12:09 → ENTRNSPT 10-30 13:04 → EDTRNSPTSTS 10-30 13:09 → 2NA 10-30 13:23 → CMPTRNSPT 10-30 13:27 → ENTRNSPT 10-30 17:34 → 2NA 10-30 18:06 → CMPTRNSPT 10-30 19:12
PROVIDERS: Emergency Medicine; Internal Medicine
DX: D18.1 Lymphangioma, any site (principal); R16.1 Splenomegaly, not elsewhere classified; M54.9 Dorsalgia, unspecified; N93.9 Abnormal uterine and vaginal bleeding, unspecified; R10.9 Unspecified abdominal pain
CPT/HCPCS: 75661; ERO; 74177; 74183; 80307; 81001; 81025; 82436; 87086; 87804; 87804-59; 93005; 93010; A9579; J1650; J1885; J2405